=== PATIENT | male | born 1945 | race Two or more races ===

== ENCOUNTER 2024-01-20 06:31 | Emergency (ER) | payer OTHER ==
[~2024-01-20] VITALS: Ht 167.6 cm; Wt 90.7 kg
[2024-01-20] MEDS ORDERED: ZESTRIL2.5 MG (06:36)
[2024-01-20] MEDS ORDERED: SIMVASTATIN40 MG PO (06:37)
[2024-01-20] MEDS ORDERED: CHILDREN'S ASPI81 MG PO (06:37)
[2024-01-20] MEDS ORDERED: VITAMIN D31 ML (06:37)
== END 2024-01-20 08:35 | disposition home or self-care (01) ==
LOC: ER 06:33
DX: K46.9 Unspecified abdominal hernia without obstruction or gangrene (principal); I10 Essential (primary) hypertension; Z91.018 Allergy to other foods